=== PATIENT | male | born 1965 | race African-American/Black ===

== ENCOUNTER 2020-04-10 17:46 | Emergency (ER) | payer OTHER ==
[2020-04-10] MEDS ORDERED: Sodium Chloride 0.9% 1,000 ML IV ONE (18:14)
--- NOTE | 2020-04-10 18:21 | EDM.PDOC ---
ED HPI GENERAL MEDICAL PROBLEM - General Chief Complaint: Upper Extremity Injury/Pain Stated Complaint: RIGHT SHOULDER Time Seen by Provider: 04/10/20 17:48 Source of Information: Reports: Patient History Limitations: Reports: No Limitations - History of Present Illness INITIAL COMMENTS - FREE TEXT/NARRATIVE: HISTORY AND PHYSICAL: History of present illness: Patient is a 54-year-old male who presents to the emergency room with complaints of right-sided neck and shoulder pain post fall. He states yesterday he was at work when he was "close lined" by some wiring across his right shoulder. This caused him to fall backwards and possibly hit the back of his head. He is unsure if he had any loss of consciousness but he was able to resume the rest of his workday. Today he has had some intermittent dizzy spells, right shoulder and neck pain which has not been alleviated with [id number] products and BenGay. Patient denies any fever, chills, headache, change in vision. Denies any chest pain, shortness of breath or cough. Denies any abdominal pain, nausea, vomiting, diarrhea, constipation or dysuria. Has not noted any blood in urine or stool. Patient has been eating and drinking appropriately. Review of systems: As per history of present illness and below otherwise all systems reviewed and negative. Past medical history: As per history of present illness and as reviewed below otherwise noncontributory. Surgical history: As per history of present illness and as reviewed below otherwise noncontributory. Social history: See social history for further information Family history: As per history of present illness and as reviewed below otherwise noncontributory. Physical exam: General: Well developed and well nourished. Alert and orientated x 3. Nontoxic in appearance and in no acute distress. Vital signs are stable and have been reviewed by me. Nursing notes were reviewed. HEENT: Nontender, no obvious injury noted, no crepitus, normocephalic, pupils equal and reactive bilaterally, negative for conjunctival pallor or scleral icterus, mucous membranes moist, TMs normal bilaterally, throat clear, teeth intact, no oral laceration/injury, neck supple, nontender, trachea midline. No drooling or trismus noted. No meningeal signs. No hot potato voice noted. Lungs: Clear to auscultation, breath sounds equal bilaterally, chest nontender. Normal work of breathing, no accessory muscles used. Heart: S1S2, regular rate and rhythm without overt murmur Abdomen: Soft, nondistended, nontender. Negative for masses or hepatosplenomegaly. Negative for costovertebral tenderness. Pelvis: Stable nontender. C-spine/Back: No pinpoint vertebral tenderness upon palpation. No crepitus, step-offs or obvious deformities. Paraspinus muscular tenderness of the right cervical spine into the trapezius muscle. Patient is ambulatory into the emergency room without difficulty or deficit. Able to rock back on heels and walk on toes. Denies any urinary or fecal incontinence. Denies any numbness, tingling or saddle paresthesia. No concerns of serious infection, fracture or cord compression, or cauda equina syndrome. Deep tendon reflexes brisk bilaterally. Skin: Intact, warm, dry. No ligature martel or open/broken skin. No erythema or soft tissue swelling noted. No lesions or rashes noted. Hematologic: No petechiae or purpra. Mucosa appropriate color and normal nail bed color and refill. Extremities: Limited ROM of the right shoulder; moves it freely but has increased pain when lifting up over head (able to go about 120 degrees). Otherwise he moves all extremities per self without difficulty or deficits. Strong radial pulses bilaterally. Neurovascular unremarkable. Neuro: Awake, alert, oriented. Cranial nerves II through XII unremarkable. Cerebellum unremarkable. Motor and sensory unremarkable throughout. Exam nonfocal. Psychiatric: Mood and affect are appropriate. Normal thought process. Answering questions appropriately. Notes: *This patient was seen and evaluated during the 2019 SARS-CoV-2 novel coronavirus pandemic period. Community viral transmission is ongoing at time of this encounter and the emergency department is operating under pandemic response procedures. Patient is vague about his symptoms; he is unsure of how he fell, but states it was from standing height. His scalp is nontender and there is no obvious injury. Due to his vagueness; I am going to order a head CT. Patient states the shoulder pain is making him feel nauseated. IV fluids and zofran given. Cervical spine CT shows no sign of acute injury. Multilevel degenerative spondylosis, mild. Emphysema. Head CT is unremarkable. Shoulder x-ray is unremarkable. Chest x-ray shows no acute findings. Patient feels improved after the fluids and Zofran. Lidoderm patch applied to the shoulder as he did drive himself. Sling applied for comfort purposes. I have talked with the patient about today's findings, in addition to providing specific details for plan of care. Reassessment at the time of disposition demonstrates that the patient is in no acute distress. The patient is stable for discharge, counseling was provided and we discussed in great detail signs and symptoms that would prompt them to return to the Emergency Department. Medication, follow up and supportive care measures were reviewed and discussed. Voices understanding and is agreeable to plan of care. Denies any further questions or concerns at this time. Diagnostics: CBC, CMP, Head CT, C-spine CT, CXR, Shoulder (R) x-ray Therapeutics: IV fluids, Zofran Prescription: Tramadol Impression: Fall Right shoulder sprain Plan: 1. Your lab work, x-rays and CT scans are within normal limits. Rest, ice and elevate the affected areas as able. Wear the sling over the next 1 to 3 days for comfort. If you continue to have pain you should follow-up with an orthopedic provider. If your symptoms should worsen, new symptoms develop or any of the signs and symptoms we discussed should arise please return to the emergency room or call 911 (if needed). Tylenol w/ codeine for moderate to severe pain. This medication may cause drowsiness so do not take it while driving or needing to be functioning outside of the house. 2. You can alternate Tylenol and ibuprofen as needed for pain and fever management. 3. We encourage you to follow up with your primary care provider and/or recommended specialist in the next few days for re-evaluation and further care/management. Definitive disposition and diagnosis as appropriate pending reevaluation and review of above. Neck Pain Score (Numeric/FACES): 8 - Related Data Allergies Allergy/AdvReac Type Severity Reaction Status Date / Time ibuprofen Allergy Other Verified 04/10/20 18:07 morphine Allergy Hives Verified 04/10/20 18:07 Home Meds: Home Meds Acetaminophen/Codeine [Tylenol with Codeine No.3 300MG/30MG] 1 tab PO Q4H PRN #10 tab 04/10/20 [Rx] Albuterol Sulfate [Proventil Hfa] 1 dose INH ASDIRECTED 04/10/20 [History] Review of Systems - Review of Systems Review Of Systems: Comprehensive ROS is negative, except as noted in HPI. ED EXAM, GENERAL - Physical Exam Exam: See Below (See dictation) Course - Vital Signs Last Recorded V/S: Last Vital Signs Temp 97.6 F 04/10/20 18:11 Pulse 82 04/10/20 20:12 Resp 18 04/10/20 20:12 BP 107/56 L 04/10/20 20:12 Pulse Ox 96 04/10/20 20:12 - Orders/Labs/Meds Orders: Active Orders 24 hr Category Date Time Status DME for Discharge [COMM] Stat Oth 04/10/20 19:18 Ordered Labs: Laboratory Tests 04/10/20 04/10/20 Range/Units 18:55 18:55 WBC 7.22 (4.0-11.0) K/uL RBC 4.27 L (4.50-5.90) M/uL Hgb 13.8 (13.0-17.0) g/dL Hct 42.0 (38.0-50.0) % MCV 98.4 H (80.0-98.0) fL MCH 32.3 H (27.0-32.0) pg MCHC 32.9 (31.0-37.0) g/dL RDW Std Deviation 50.2 (28.0-62.0) fl RDW Coeff of Derrick 14 (11.0-15.0) % Plt Count 225 (150-400) K/uL MPV 10.50 (7.40-12.00) fL Neut % (Auto) 86.4 H (48.0-80.0) % Lymph % (Auto) 6.8 L (16.0-40.0) % [place] % (Auto) 6.1 (0.0-15.0) % Eos % (Auto) 0.6 (0.0-7.0) % Baso % (Auto) 0.1 (0.0-1.5) % Neut # (Auto) 6.2 H (1.4-5.7) K/uL Lymph # (Auto) 0.5 L (0.6-2.4) K/uL [place] # (Auto) 0.4 (0.0-0.8) K/uL Eos # (Auto) 0.0 (0.0-0.7) K/uL Baso # (Auto) 0.0 (0.0-0.1) K/uL Nucleated RBC % 0.0 /100WBC Nucleated RBCs # 0 K/uL Sodium 141 (136-148) mmol/L Potassium 3.6 (3.5-5.1) mmol/L Chloride 103 (98-107) mmol/L Carbon Dioxide 26.3 (21.0-32.0) mmol/L BUN 28 H (7.0-18.0) mg/dL Creatinine 1.2 (0.8-1.3) mg/dL Est Cr Clr Drug Dosing 78.61 mL/min Estimated GFR (MDRD) > 60.0 ml/min Glucose 85 (74-106) mg/dL Calcium 8.8 (8.5-10.1) mg/dL Total Bilirubin 0.6 (0.2-1.0) mg/dL AST 19 (15-37) IU/L ALT 18 (14-63) IU/L Alkaline Phosphatase 71 (46-116) U/L Total Protein 8.0 (6.4-8.2) g/dL Albumin 3.9 (3.4-5.0) g/dL Globulin 4.1 H (2.6-4.0) g/dL Albumin/Globulin Ratio 1.0 (0.9-1.6) Meds: Medications Discontinued Medications Generic Name Dose Route Start Last Admin Trade Name Freq PRN Reason Stop Dose Admin Sodium Chloride 1,000 mls @ 999 mls/hr 04/10/20 18:14 04/10/20 18:55 Normal Saline IV 04/10/20 19:14 999 mls/hr STAT ONE Administration Lidocaine 700 mg 04/10/20 19:12 04/10/20 19:21 Lidoderm 5% TOP 04/10/20 19:13 700 mg ONETIME ONE Administration Ondansetron HCl 4 mg 04/10/20 18:54 04/10/20 18:55 Zofran IVPUSH 04/10/20 18:55 4 mg ONETIME ONE Administration Ondansetron HCl Confirm 04/10/20 18:54 04/10/20 18:57 Zofran Administered 04/10/20 18:55 Not Given Dose 4 mg .ROUTE .STK-MED ONE Departure - Departure Time of Disposition: 19:17 Disposition: Home, Self-Care 01 Clinical Impression: Fall Qualifiers: Encounter type: initial encounter Qualified Code(s): W19.XXXA - Unspecified fall, initial encounter Sprain of shoulder, left Qualifiers: Encounter type: initial encounter Shoulder sprain type: unspecified sprain Qualified Code(s): S43.402A - Unspecified sprain of left shoulder joint, initial encounter - Discharge Information Prescriptions: Acetaminophen/Codeine [Tylenol with Codeine No.3 300MG/30MG] 1 tab PO Q4H PRN #10 tab PRN Reason: Pain Instructions: Shoulder Pain, [id number] Referrals: PCP,Not In Area [Primary Care Provider] - Forms: ED Department Discharge Additional Instructions: The following information is given to patients seen in the emergency department who are being discharged to home. This information is to outline your options for follow-up care. We provide all patients seen in our emergency department with a follow-up referral. The need for follow-up, as well as the timing and circumstances, are variable depending upon the specifics of your emergency department visit. If you don't have a primary care physician on staff, we will provide you with a referral. We always advise you to contact your personal physician following an emergency department visit to inform them of the circumstance of the visit and for follow-up with them and/or the need for any referrals to a consulting specialist. The emergency department will also refer you to a specialist when appropriate. This referral assures that you have the opportunity for follow-up care with a specialist. All of these measure are taken in an effort to provide you with optimal care, which includes your follow-up. Under all circumstances we always encourage you to contact your private physician who remains a resource for coordinating your care. When calling for follow-up care, please make the office aware that this follow-up is from your recent emergency room visit. If for any reason you are refused follow-up, please contact the [facility] at and asked to speak to the emergency department charge nurse. [facility] [address] [place] [id number] [id number] Thank you for choosing the [facility] emergency department in [place] for your medical needs today. It was a pleasure caring for you. Today you were seen in the emergency department for shoulder pain post fall. 1. Your lab work, x-rays and CT scans are within normal limits. Rest, ice and elevate the affected areas as able. Wear the sling over the next 1 to 3 days for comfort. If you continue to have pain you should follow-up with an orthopedic provider. If your symptoms should worsen, new symptoms develop or any of the signs and symptoms we discussed should arise please return to the emergency room or call 911 (if needed). Tylenol w/ codeine for moderate to severe pain. This medication may cause drowsiness so do not take it while driving or needing to be functioning outside of the house. 2. You can alternate Tylenol and ibuprofen as needed for pain and fever management. 3. We encourage you to follow up with your primary care provider and/or recommended specialist in the next few days for re-evaluation and further care/management. Sepsis Event Note (ED) - Evaluation Sepsis Screening Result: No Definite Risk - Focused Exam Vital Signs: Vital Signs Temp Pulse Resp BP Pulse Ox 04/10/20 20:12 82 18 107/56 L 96 04/10/20 19:10 86 18 118/57 L 95 04/10/20 18:11 97.6 F 93 16 122/55 L 98 - My Orders Last 24 Hours: My Active Orders 04/10/20 19:18 DME for Discharge [COMM] Stat - Assessment/Plan Last 24 Hours: My Active Orders 04/10/20 19:18 DME for Discharge [COMM] Stat
[2020-04-10] MEDS ORDERED: Ondansetron 4 MG/2 ML SDV IVPUSH ONE (18:54)
[2020-04-10] MEDS ORDERED: Ondansetron 4 MG/2 ML SDV ONE (18:54)
--- NOTE | 2020-04-10 18:56 | CT ---
INDICATION: Head pain after fall TECHNIQUE: CT head without contrast. COMPARISON: None FINDINGS: CSF spaces: Within normal limits for age. Brain parenchyma: The ibarra-white differentiation is normal. No sign of mass, hemorrhage, or midline shift. Skull base and calvarium: The visualized paranasal sinuses and mastoid air cells demonstrate no acute or significant findings. The visualized orbits are grossly unremarkable. No skull fractures. IMPRESSION: Unremarkable noncontrast head CT. Please note that all CT scans at this facility use dose modulation, iterative reconstruction, and/or weight-based dosing when appropriate to reduce radiation dose to as low as reasonably achievable. Dictated by Maria Teresa Richards MD @ Apr 10 2020 6:54PM Signed by Dr. Maria Teresa Richards @ Apr 10 2020 6:54PM
--- NOTE | 2020-04-10 18:58 | CT ---
INDICATION: Neck pain after fall TECHNIQUE: CT cervical spine without contrast. COMPARISON: None FINDINGS: Vertebral alignment: Alignment is normal. Vertebrae: There are no fractures or suspicious bony lesions. Discs and facet joints: There are multilevel degenerative disc and facet changes. Extraspinal findings: Paraspinous soft tissues are unremarkable. There is emphysema. IMPRESSION: 1. No sign of acute injury. 2. Mild multilevel degenerative spondylosis. 3. Emphysema. Please note that all CT scans at this facility use dose modulation, iterative reconstruction, and/or weight-based dosing when appropriate to reduce radiation dose to as low as reasonably achievable. Dictated by Maria Teresa Richards MD @ Apr 10 2020 6:52PM Signed by Dr. Maria Teresa Richards @ Apr 10 2020 6:57PM
--- NOTE | 2020-04-10 19:05 | CR ---
Indication: Fall Technique: Chest 1 view Comparison: None Findings/Impression: Cardiovascular and mediastinum: Heart size and vasculature are normal in caliber and appearance. Mediastinum is within normal limits. Lungs and pleural space: Lungs are clear. No sign of infiltrate or mass. No sign of pleural effusion. No pneumothorax. Bones and soft tissues: No significant findings. Dictated by Maria Teresa Richards MD @ Apr 10 2020 7:03PM Signed by Dr. Maria Teresa Richards @ Apr 10 2020 7:04PM
--- NOTE | 2020-04-10 19:07 | CR ---
Indication: Shoulder pain after fall Technique: Three views right shoulder Comparison: None Findings: Bones: Alignment is normal. No fractures or bone lesions. Joint spaces: Unremarkable. Soft tissues: Unremarkable. Impression: Negative. Dictated by Maria Teresa Richards MD @ Apr 10 2020 7:04PM Signed by Dr. Maria Teresa Richards @ Apr 10 2020 7:05PM
[2020-04-10] MEDS ORDERED: Lidocaine 5% 700 MG Patch TOP ONE (19:12)
[2020-04-10 20:22] LABS: BLOOD UREA NITROGEN,BUN 28 mg/dL (7.0-18.0); CARBON DIOXIDE,CO2 26.3 mmol/L (21.0-32.0); CHLORIDE,CL 103 mmol/L (98-107); GLUCOSE RANDOM 85 mg/dL (74-106); POTASSIUM,K 3.6 mmol/L (3.5-5.1); SODIUM,NA 141 mmol/L (136-148)
== END 2020-04-10 20:39 | disposition home or self-care (01) ==
LOC: MW.ED 17:46
DX: S43.401A Unspecified sprain of right shoulder joint, initial encounter (principal); Z88.6 Allergy status to analgesic agent; Z88.5 Allergy status to narcotic agent; W19.XXXA Unspecified fall, initial encounter; Y99.0 Civilian activity done for income or pay
CPT/HCPCS: 36415; 70450; 71045; 72125; 73030; 80053; 85025; 96374; 99284; A9270; J2405; J7030